=== PATIENT | male | born 1965 | race Two or more races ===

== ENCOUNTER → 2025-04-06 | Outpatient (CLI) | payer MEDICAID, SELFPAY ==
--- NOTE | 2025-04-06 16:45 | XR_ITS ---
Exam: MRI knee without contrast, right Date and time of exam: April 06, 2025, 1851 hours INDICATIONS: Generalized knee pain swelling joint clicking and weakness instability 3 years Technique: Multiple axial, coronal, and sagittal sections on the knee have been obtained. T2-Weighted sagittal, fat-suppressed images, TR 3,500, TE 62, T2 weighted coronal fat-saturated images, TR 3,500, TE 62 Proton density sagittal sections, TR 1800, TE 31. T-1 weighted coronal images, TR 524, TE 13.0 Findings: Medial meniscus anterior horn intact. Medial meniscus, body marked truncation inner margin, horizontal linear tear, extrusion of the joint space, meniscocapsular separation. Posterior horn medial meniscus severe truncation inner margin, complex tear including vertical component communicating inferior articular surface. Lateral meniscus anterior horn horizontal linear tear Lateral meniscus, body is intact Posterior horn lateral meniscus truncation inner margin Anterior cruciate ligament absent Posterior cruciate ligament moderate strain Knee effusion is moderate. Quadriceps and patellar tendons appear intact. There is no evidence of tendinosis. Inflammatory change or fracture of Hoffa's fat pad is not seen. Medial patellar facet demonstrates moderate thinning. Lateral patellar facet cartilage demonstrates moderate thinning. Trochlear cartilage demonstrates moderate thinning. Marrow signal adequate. Medial collateral ligament appears intact. . Illiotibial band and fibular collateral ligament are intact. Biceps femoris tendons appear intact. Medial femoral condylar articular cartilage demonstrates severe thinning. Lateral femoral condylar articular cartilage demonstrates moderate thinning. Tibial plateau cartilage demonstrates severe medial thinning. Impression: Extensive medial and lateral meniscus tears Meniscocapsular separation body of the medial meniscus Absent anterior cruciate ligament Moderate strain posterior cruciate ligament
== END | disposition home or self-care (01) ==
LOC: SMRI 16:56
PROVIDERS: PCP Nurse Practitioner Family; Referring Provider Nurse Practitioner Family; Visit Provider Nurse Practitioner Family
DX: S83.281A Other tear of lateral meniscus, current injury, right knee, initial encounter (principal); S83.241A Other tear of medial meniscus, current injury, right knee, initial encounter; S83.194A Other dislocation of right knee, initial encounter; X58.XXXA Exposure to other specified factors, initial encounter
CPT/HCPCS: 73721